=== PATIENT | male | born 1950 | race Caucasian/White ===

== ENCOUNTER → 2016-09-02 | Outpatient (CLI) | payer MEDICARE, OTHER ==
--- NOTE | ~2016-09-02 | TH ---
Unit #: [id number] #: [id number] Patient: MERI CAMARGO [id number] [address] [id number] O MR#: [id number] NAME: MERI CAMARGO : 1950 SEX: M STUDY DATE/TIME: 09/02/2016 UNIT: [facility] ROOM: STUDY DESCRIPTION: Attending Physician: Bebo Lebron M.D. Referring Physician: Bebo Lebron M.D. Primary Care Physician: Marilyn Sosa M.D. CARDIOLOGY REPORT EXAM Stress nuclear and ECG. INDICATION Chest pain, hypertension, dyslipidemia, tobacco abuse. SUMMARY Patient exercised on a Herbert protocol to maximal effort. Patient developed shortness of breath and hip pain but no chest pain. The resting ECG and the stress ECG showed no diagnostic ST shifts. There were single PVCs noted during the stress. Patient completed 7 minutes of exercise. The heart rate increased from 59 to 136 (87%) and blood pressure increased from 156/85 to 200/70. Technetium 99 Cardiolite 11.45 and 33.6 mCi was injected at rest and stress, respectively. Appropriate views were obtained. FINDINGS Perfusion images demonstrates diaphragmatic artifact mainly at the base. There is some chest wall attenuation artifact, but otherwise, perfusion appears normal and equivalent between rest and stress. Summed stress score is zero. Planar images demonstrates no significant patient motion either at rest or stress. There is no significant lung uptake, LV or RV enlargement. Gated perfusion wall motion analysis demonstrates normal wall motion throughout the myocardium with end-diastolic volume 1269 mL and ejection fraction 63%. IMPRESSION 1. Stress nuclear study shows no ischemia or infarction. 2. Fair exercise capacity based on the patient's age. 3. Normal heart rate response. 4. Borderline hypertensive blood pressure response. 5. No ECG changes. 6. Upper normal left ventricle size. 7. Normal left ventricular function. 1. Dictated by... Olman Chavira M.D. Jenn Unit #: [id number] #: [id number] Patient: MERI CAMARGO TD: 09/02/2016 20:57 JOB #: [id number] CARDIOLOGY REPORT X Olman Chavira MD CARDIOLOGY REPORT
== END | disposition home or self-care (01) ==
LOC: CNUC 07:15
DX: R07.9 Chest pain, unspecified (principal); I51.7 Cardiomegaly
CPT/HCPCS: 78452; 93017; 93306; A9500; J2785